=== PATIENT | female | born 1960 | race American Indian/Alaskan Native ===

== ENCOUNTER 2024-03-17 08:42 | Day surgery (SDC) | payer OTHER ==
[~2024-03-17] VITALS: Ht 160 cm; Wt 72.7 kg
--- NOTE | ~2024-03-17 | OR ---
[facility] [address], [place] [address] Draft DATE OF OPERATION: 03/17/2024 SURGEON: Carmelina Portillo MD PREOPERATIVE DIAGNOSES: 1. Positive fecal occult blood test without gross blood per rectum. 2. Distant history of polyp. POSTOPERATIVE DIAGNOSIS: Small polyps x2, left colon and sigmoid. PROCEDURE: Total colonoscopy to cecum with cold morcellation polypectomy x2. ANESTHESIA: Intravenous sedation; fentanyl 100 mcg and Versed 4 mg. INDICATION: This 63-year-old white woman is a patient of KHOA Holt at [facility]. She was found to have positive fecal occult blood test, but no gross blood per rectum. She underwent colonoscopy elsewhere a number of years ago and was said to have had at least one polyp. She has no family history of colon cancer and no symptoms of diarrhea or constipation. She is admitted to undergo colonoscopy at this time. She understands the risk of bleeding, infection, and perforation. FINDINGS: The prep was excellent. Complete colonoscopy was undertaken to the cecum without question. She had two very small polyps, one in the left colon, the other in the sigmoid, both were excised. Neither would be likely to cause bleeding, however. There were no other findings of note. PROCEDURE IN DETAIL: The patient was brought to the surgical endoscopy suite and placed in the lateral decubitus position, given intravenous sedation to the point of slurred speech and nystagmus. Full cardiopulmonary monitoring was maintained. Digital rectal examination was normal. An Olympus video colonoscope was passed in the rectum and manipulated throughout the colon ultimately intubating the cecum itself. The ileocecal valve and appendiceal orifice were clearly normal. The scope was withdrawn from that point and examination PATIENT NAME: MEÑO PRINCE OPERATIVE REPORT DATE OF : 58 REPORT #: [id number] PHYSICIAN: CARMELINA PORTILLO MD PCP: DAWOOD PAULSON [facility] REPORT IS CONFIDENTIAL AND NOT TO BE RELEASED WITHOUT AUTHORIZATION [facility] [address], [place] [address] Draft throughout showed no sign of abnormality into the left colon where a small polyp was noted. This was about 5 mm or less in size. The scope was withdrawn from that point and examination undertaken showed no other abnormality until the sigmoid where another small polyp was noted also 3-5 mm in size. It too was excised with cold morcellation technique. Further withdrawal allowed retroflexed view of the rectum, which was normal. Scope was removed and the patient was taken to the recovery room in good condition. CONCLUDING DIAGNOSIS: Polyps x2. PLAN: Recommend repeat colonoscopy in seven years based on current clinical guidelines, sooner if symptoms should develop. If she should have gross blood per rectum or hematemesis, additional evaluation would be undertaken. She will return to the ongoing care of Dawood Paulson at [facility]. MD CHERELLE Berg/NITHIN /[id number] cc: Reagan at [facility]. Copies: ~ PATIENT NAME: MEÑO PRINCE OPERATIVE REPORT DATE OF : 58 REPORT #: [id number] PHYSICIAN: CARMELINA PORTILLO MD PCP: DAWOOD PAULSON SHIFT SUPERVISOR RN-BC REPORT IS CONFIDENTIAL AND NOT TO BE RELEASED WITHOUT AUTHORIZATION
[~2024-03-17 08:42] MED LIST: ALL DAY ALLERGY10 M4 PO; COZAAR25 MG PO; IBLOOD GLUCOSE TEST STRIP 1 EA TEST VI PRN; KLOR-CON M1010 MEQ PO; LACTATED RINGER'S 1,000 ML IV SCH; LIDOCAINE HCL 1% 5 ML SDV INJ ONE; LIPITOR20 MG GT; METFORMIN HCL500 M1 PO; MIDAZOLAM HCL 5 MG/5 ML VIAL IV PRN; MIDAZOLAM HCL 5 MG/5 ML VIAL ONE; OZEMPIC2 MG/0.75 SQ; ROSUVASTATIN CA10 MG; VITAMIN D350 MCG PO; fentaNYL citrate 100 MCG/2 ML VIAL IV PRN; fentaNYL citrate 100 MCG/2 ML VIAL ONE
[2024-03-17 09:06] VITALS: BP 137/68
--- NOTE | 2024-03-17 11:34 | NUR ---
03/17/24 Levon4 Candelaria Menard 1127-PATIENT ARRIVED TO PACU ON 2L NC RR EVEN. PATIENT AWAKE DROWSY DENIES PAIN OR NAUSEA. IVF INFUSING. ABDOMEN SOFT. PATIENT DOZES BACK TO SLEEP.
[2024-03-17 12:05] VITALS: BP 131/71
--- NOTE | 2024-03-19 14:54 | PATH ---
[facility] [address], [place] [address] Signed SPECIMEN(S): A DESCENDING COLON POLYP SPECIMEN(S): B SIGMOID POLYP SPECIMEN SOURCE: A. DESCENDING COLON POLYP B. SIGMOID POLYP CLINICAL HISTORY: History polyps, positive fecal occult blood test FINAL PATHOLOGIC DIAGNOSIS: A. Colon, descending, polypectomy: - Hyperplastic polyp B. Colon, sigmoid, polypectomy: - Hyperplastic polyp BRP MICROSCOPIC EXAMINATION: Histologic sections of all submitted blocks are examined by light microscopy. These findings, together with the gross examination, support the pathologic diagnosis. GROSS DESCRIPTION: A. The specimen, labeled and designated "Lio Terry, per requisition descending colon polyp," is received in formalin and consists of a single garcia tissue fragment that is 0.3 cm in greatest dimension. The specimen is submitted entirely in cassette A1. B. The specimen, labeled and designated "Lio Terry, per requisition sigmoid polyp," is received in formalin and consists of five garcia tissue fragments ranging from 0.1 to 0.4 cm in greatest dimension. The specimen is submitted entirely in cassette B1. AA (under the direct supervision of a pathologist) The Gross Description was prepared using a voice recognition system. The report was reviewed for accuracy; however, sound-alike word errors, addition and/or deletions may occur. If there is any question about this report, please contact Client Services. ADDITIONAL NOTES: Immunohistochemical and/or in situ hybridization studies if performed in this case included appropriate positive controls that reacted as expected. This test was developed and its performance PATIENT NAME: MEÑO TERRY PATHOLOGY DATE OF : 58 REPORT #: [id number] PHYSICIAN: ROLA MOSER PCP: DAWOOD PAULSON [facility] REPORT IS CONFIDENTIAL AND NOT TO BE RELEASED WITHOUT AUTHORIZATION [address], [place] [address] Signed characteristics determined by [facility]. It has not been cleared or approved by the U.S. Food and Drug Administration. The FDA has determined that such clearance or approval is not necessary. This test is used for clinical purposes. It should not be regarded as investigational or for research. [facility] is certified under the Clinical Laboratory Improvement Amendments of 1988 (CLIA) as qualified to perform high complexity clinical laboratory testing. PERFORMING LABORATORY: Technical component was performed by [facility], [address] [place] [id number] (CLIA# [id number]). Professional interpretation was performed by [facility] - [address] [id number] Diagnostician: Get Abernathy MD Pathologist Electronically Signed 03/19/2024 Copies: ~ PATIENT NAME: MEÑO TERRY PATHOLOGY DATE OF : 58 REPORT #: [id number] PHYSICIAN: ROLA PATHOLOGY PCP: DAWOOD PAULSON [facility]- REPORT IS CONFIDENTIAL AND NOT TO BE RELEASED WITHOUT AUTHORIZATION
== END 2024-03-17 12:10 | disposition home or self-care (01) ==
LOC: DS 08:42 → OPS 08:42 → DS 08:43 → OPS 10:00 → DS 14:00
PROVIDERS: ATTEND Surgery
PROC: 0DBN8ZX Excision of Sigmoid Colon, Via Natural or Artificial Opening Endoscopic, Diagnostic (ICD-10-PCS; 2024-03-17)
PROC: 0DBG8ZX Excision of Left Large Intestine, Via Natural or Artificial Opening Endoscopic, Diagnostic (ICD-10-PCS; principal; 2024-03-17 10:00)
DX: Z12.11 Encounter for screening for malignant neoplasm of colon (principal); K63.5 Polyp of colon; E11.9 Type 2 diabetes mellitus without complications; Z86.0100 Personal history of colon polyps, unspecified; Z79.85 Long-term (current) use of injectable non-insulin antidiabetic drugs; Z79.84 Long term (current) use of oral hypoglycemic drugs; Z79.899 Other long term (current) drug therapy; Z88.2 Allergy status to sulfonamides; Z91.018 Allergy to other foods; Z90.49 Acquired absence of other specified parts of digestive tract
CPT/HCPCS: 99153; G0500; J2250; J3010; J7121